=== PATIENT | male | born 1985 | race Caucasian/White ===

== ENCOUNTER 2024-07-12 10:00 | Emergency (ER) | payer OTHER, SELFPAY ==
[2024-07-12] VITALS (8 sets, daily range): BP systolic 105–136; BP diastolic 16–89
[2024-07-12 11:55] LABS: % Basophils 1.2 % (0-2); % Eosinophils 2.7 % (0-6); % Immature Granulocytes 0.2 % (0-0.5); % Lymphocytes 35.9 % (20.5-51.1); % Monocytes 7.4 % (1.7-9.3); % Neutrophils 52.6 % (42.2-75.2); Absolute Basophils 0.1 10^3/uL (0-0.2); Absolute Eosinophils 0.1 10^3/uL (0-0.7); Absolute Lymphocytes 1.9 10^3/uL (1.2-3.4); Absolute Monocytes 0.4 10^3/uL (0.1-0.6); Absolute Neutrophils 2.7 10^3/uL (1.4-6.5); Hematocrit 39.8 % (39.0-52.0); Hemoglobin 13.9 g/dL (13.0-18.0); Mean Corp Hgb Conc. 34.9 g/dL (33.0-37.0); Mean Corpuscular Volume 88.8 fL (80.0-94.0); Mean Platelet Volume 12.6 fL (7.4-10.4); Nucleated Red Blood Cells % 0 % (-); Platelet Count 160 10^3/uL (130-400); Red Blood Cell Count 4.48 10^6/uL (4.70-6.10); White Blood Cell Count 5.2 10^3/uL (4.8-10.8)
[2024-07-12 12:13] LABS: ALT (SGPT) 46 U/L (0-50); AST (SGOT) 38 U/L (17-59); Alkaline Phosphatase 48 U/L (38-126); Blood Urea Nitrogen 19 mg/dl (9-20); Calcium 9.6 mg/dl (8.4-10.2); Carbon Dioxide 29 mmol/L (22-30); Chloride 102 mmol/L (98-107); Glucose 89 mg/dl (70-99); Potassium 4.5 mmol/L (3.5-5.1); Sodium 140 mmol/L (135-145); Total Bilirubin 0.6 mg/dl (0.2-1.3); eGFR > 60.00
[2024-07-12 12:36] LABS: TSH 3.07 uIU/ml (0.47-4.68)
[2024-07-12 13:13] LABS: Magnesium 1.9 mg/dl (1.6-2.3)
--- NOTE | 2024-07-12 13:24 | ED.GENMED ---
History of Present Illness
General
Chief Complaint: Fainting Sensation
Time Seen by Provider: 07/12/24 11:08
History of Present Illness
History of Present Illness:
38-year-old male presents to the emergency department for evaluation of fatigue and near syncope. 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 He has
not had full syncope at any point in time. Event today was associated with heart palpitations. Denies any chest pain. No night sweats or headaches. No new prescription medications however he is taking numerous homeopathic supplements.
Review of Systems
Review of Systems
Allergies reviewed?: Yes
All Other Systems: ROS reviewed and negative except as documented in HPI and ROS
Phy Exam
Physical Exam
Physical Exam:
GEN: Well appearing, NAD, WDWN
Eyes: PERRLA, EOMs intact, no scleral icterus
HENT: NCAT, oral mucosa moist, no JVD, no cervical adenopathy.
Lungs: CTAB, no wheezes, rales, rhonchi, normal chest wall excursion
Cardiac: Bradycardic, regular, no murmur
Abdomen: S, NT, ND, NABS, no masses or hepatosplenomegaly
Neuro: AO x 3, no focal deficits to BUE/BLE, normal sensation throughout
MSK: No gross deformity or ecchymosis. No edema. No digital clubbing
Skin: No rashes, petechiae. Normal color, no pallor or jaundice.
Psych: Calm, cooperative, proper hygiene
Course
Orders/Labs/Results
Orders:
Orders
07/12/24 10:02
Electrocardiogram (*1) Urgent
Reason for Study: Syncope
EKG- Treatment ONCE
07/12/24 11:28
CBC/With Diff [Complete Blood Count/With Diff] Urgent
Comprehensive Metabolic Panel Urgent
Lyme Progressive Urgent
Comment: LYME PROGRESSIVE ADDED ON BY FLOOR 1PM 4-14-25
Magnesium Urgent
Comment: ADD
TSH Urgent
07/12/24 11:30
Electrocardiogram (*1) Urgent
Reason for Study: Fatigue / Weakness
Comment: repeat
EKG- Treatment ONCE
07/12/24 12:07
Add On- LAB Urgent
Tests Added?: magnesium
07/12/24 12:13
Echo 2D MMode Color/Doppler Urgent
Reason for Study: junctional mari/near syncope
Cardiology Consult: Clau Napier
07/12/24 12:56
Add On- LAB Urgent
Tests Added?: lyme progressive
Abnormal Lab Results
07/12/24
11:28
RBC 4.48 L 10^6/uL
(4.70-6.10)
MPV 12.6 H fL
(7.4-10.4)
07/12/24 11:28
07/12/24 11:28
Vital Signs
Initial and Last Documented VS:
Initial Vital Signs
Temp Pulse Resp BP Pulse Ox
97.8 F 52 16 136/83 100
07/12/24 10:01 07/12/24 10:01 07/12/24 10:01 07/12/24 10:01 07/12/24 10:01
Last Documented Vital Signs
Temp Pulse Resp BP Pulse Ox
97.8 F 61 17 116/64 100
07/12/24 10:01 07/12/24 14:15 07/12/24 13:15 07/12/24 14:00 07/12/24 14:15
MDM/Problems Addressed
MDM/Problems Addressed:
Patient was noted to have a similar event while seated in the exam bed, noted on telemetry to have a brief period of a junctional escape rhythm before returning to a sinus bradycardia. He was also hypotensive at this moment. Suspicion for
increased vagal tone causing these episodes however the cause of this is not yet clear. Labs are reassuring. I consulted cardiology who authorized an urgent echocardiogram, this was unremarkable. Lyme titer is pending at time of discharge. The
patient will go directly from the ER to the cardiology office for a Holter monitor and has a scheduled follow-up with cardiology after the completion of the monitor for further evaluation
*Critical Care Note
Total Time (30-74mins, 75-104mins- exclusive of procedures): Not Applicable
ED Attending Note
-
Portions of this chart may have been created with voice recognition software.� Occasional wrong word or��sound alike� substitutions may have occurred due to the inherent limitations of voice recognition software.
Discharge Plan
Departure
Patient Disposition: Home (Routine Discharge)
Date of Disposition: 07/12/24
Time of Disposition: 14:31
Patient with high blood pressure during this ER visit?: No
Discharge Problem:
Junctional escape rhythm, Near syncope
Instructions: Near Fainting (DC)
Referrals:
Ck Napier MD [Active] - 07/14/24 9:20 am ([facility] 9:20 AM. Please call [phone] if you need to reschedule.)
Jose Rafael Wright CRNP [Family Provider] -
Stand Alone Forms: Return to Work
Activity Restrictions/Additional Instructions:
-Please walk to the cardiology office in [address] of the [place] to have a engine monitor applied when you leave the emergency department.
Interventions
Interventions:
*Risk Screen - Suicide Last Done: 07/12/24 10:01
*General Assessment Last Done: 07/12/24 11:25
*Neglect/Abuse Screening Last Done: 07/12/24 10:01
*ED- Fall Risk Assessment Last Done: 07/12/24 11:25
*ED COVID-19 Vaccine History Last Done: 07/12/24 11:25
*Nursing Disposition Last Done: 07/12/24 14:49
ED- Cardiac Assessment Last Done: 07/12/24 11:43
ED- Neurological Assessment Last Done: 07/12/24 11:43
Discharge Date and Time
Discharge Date/Time: 07/12/24 14:50
Print Language: SOMALI
== END 2024-07-12 14:50 | disposition home or self-care (01) ==
LOC: EMR 10:00
PROVIDERS: Physician Assistant; EMERGENCY PHYSICIAN Emergency Medicine; FAMILY PHYSICIAN Registered Nurse
DX: I49.2 Junctional premature depolarization (principal); R55 Syncope and collapse
CPT/HCPCS: 99284; 80053; 83735; 84443; 85025; 86618; 93005; 93306

== ENCOUNTER → 2024-08-12 08:33 | Outpatient (REF) | payer OTHER, SELFPAY | LOC: PAVMRI 08:33 | PROVIDERS: ATTENDING PHYSICIAN Internal Medicine Cardiovascular Disease; FAMILY PHYSICIAN Family Medicine | DX: R00.1 Bradycardia, unspecified (principal) | CPT/HCPCS: 75561; 75565; A9585 ==

== ENCOUNTER → 2024-11-11 15:33 | Outpatient (REF) | payer OTHER, SELFPAY | LOC: HWRAD 15:33 | PROVIDERS: ATTENDING PHYSICIAN Nurse Practitioner Family; FAMILY PHYSICIAN Nurse Practitioner Adult Health | DX: M79.89 Other specified soft tissue disorders (principal) | CPT/HCPCS: 76536 ==